=== PATIENT | male | born 1945 | race Caucasian/White ===

== ENCOUNTER 2020-06-06 07:51 | Outpatient (CLI) | payer MEDICARE, SELFPAY ==
--- NOTE | ~2020-06-06 | XR_ITS ---
EXAMINATION: XR hip RT 2V w AP pelvis EXAM DATE: 06/06/2020 08:18 INDICATION: No known recent injury provided at this time. Pain of the pelvis, right hip. TECHNIQUE: Right hip frontal, 'frog leg' projections for interpretation. Frontal projection pelvis. There is no prior study for comparison. FINDINGS: Smooth right hip femoral head contour, no radiographic evidence of avascular necrosis. The re is mild to moderate symmetric bilateral primary osteoarthritis. There are no acute pelvic or right hip fractures or dislocations identified. There is no subcutaneous gas. There is scattered arterio sclerotic disease. There are no radiopaque foreign bodies. IMPRESSION: Mild to moderate bilateral hip osteoarthritis. Reviewed, dictated and finalized at location G. FIC INVESTIGATOR
== END 2020-06-06 07:52 | disposition home or self-care (01) ==
PROVIDERS: PCP Family Medicine; Visit Provider Physician Assistant
DX: M16.0 Bilateral primary osteoarthritis of hip (principal)
CPT/HCPCS: 73502

== ENCOUNTER 2020-06-16 07:06 | Outpatient (CLI) | payer MEDICARE, SELFPAY ==
--- NOTE | ~2020-06-16 | CT_ITS ---
EXAMINATION: CT lung screening EXAM DATE: 06/16/2020 07:21 INDICATION: Z87.891 - Personal history of nicotine dependence. Cough. TECHNIQUE: Spiral low dose CT of the chest without contrast. Axial, coronal and sagittal images were reviewed. The dose-length product (DLP) for this examination was 161.21 mGy-cm. The exposure was t ailored according to patient size (auto mA exposure control), and iterative reconstruction (ASIR) was used as additional dose reduction technique. Comparison is made to prior examination from 06/06/2019 FINDINGS: Mild emphysema and hyperinflation. Linear left sided scarring. Punctate 3 mm right lower l obe nodule, interval decrease in size consistent with granuloma. Tracheobronchial tree is patent. T here is no mediastinal, hilar or axillary lymphadenopathy. There are no pleural or pericardial effu sions. There is no pneumothorax. Heart normal in size. There are dense coronary arteries, could be severe coronary arterial sclerosis and/or coronary artery stent(s), which are difficult to distin guish due to cardiac motion on this non-gated exam. Correlate with cardiac history and consider cardi ology consult if not recently evaluated. Upper abdomen is unremarkable. There is thoracic spondylos is without osteoblastic or osteolytic lesions identified. IMPRESSION: Lung-RADS category 2, benign appearance or behavior (<1% chance of malignancy); recommend continued LDCT screening in 1 year. Reviewed, dictated and finalized at location A. UNTANT CERTIFIED PUBLIC
== END 2020-06-16 07:07 | disposition home or self-care (01) ==
PROVIDERS: PCP Family Medicine; Visit Provider Family Medicine
DX: Z12.2 Encounter for screening for malignant neoplasm of respiratory organs (principal); Z87.891 Personal history of nicotine dependence
CPT/HCPCS: G0297

== ENCOUNTER 2020-11-10 11:14 | Emergency (ER) | payer MEDICARE, SELFPAY ==
[2020-11-10] VITALS (16 sets, daily range): BP systolic 127–179; BP diastolic 66–99; PULSE 63–86; RESP 12–20; TEMP 36.3; O2SAT 91–100
--- NOTE | ~2020-11-10 | US_ITS ---
EXAMINATION: US arterial duplex LE DATE: 11/10/2020 15:06 INDICATION: Peripheral arterial disease. Left lower limb pain. TECHNIQUE: Multiple grayscale and Doppler ultrasound images of the left lower limb were obtained. COMPARISON: Angiography 01/28/2010 FINDINGS: There is a left below-knee amputation. There is total occlusion of left common femoral esvin ry, superficial femoral artery, and profunda femoral artery. IMPRESSION: 1. Total occlusion of left common femoral artery, superficial femoral artery, and profunda femoral ar gino. Reviewed, dictated and finalized at location A. IMPRESSION: 1. Total occlusion of left common femoral artery, superficial femoral artery, a nd profunda femoral artery.
[2020-11-10 12:10] LABS: Basophils Percent Auto 0.2 % (0.2-1.2); Eosinophils Absolute Auto 0.3 K/mm3 (0-0.3); Eosinophils Percent Auto 3.5 % (0-4.4); Hematocrit 34.3 % (42.0-52.0); Hemoglobin 11.6 g/dL (14.0-18.0); Immature Granulocyte Absolute 0.04 K/mm3 (0.00-0.031); Immature Granulocyte Percent A 0.5 % (0-0.5); Lymphocytes Absolute Auto 0.65 K/mm3 (0.9-3.2); Lymphocytes Percent Auto 7.4 % (18.3-44.2); Mean Corpuscular HGB Conc 33.8 g/dl (32-36); Mean Corpuscular Volume 97.4 fl (80-100); Monocytes Absolute Auto 0.9 K/mm3 (0.1-0.6); Monocytes Percent Auto 10.6 % (2.6-8.5); Neutrophils Absolute Auto 6.9 K/mm3 (1.3-6.7); Neutrophils Percent Auto 77.8 % (45.5-73.1); Platelet Count Result 216 k/mm3 (150-375); Red Blood Count 3.52 M/mm3 (4.6-6.20); White Blood Count 8.8 K/mm3 (4.5-10.0)
[2020-11-10 12:21] LABS: Potassium 4.7 mmol/L (3.4-5.0)
[2020-11-10 12:22] LABS: Anion Gap 3 mmol/L (8-16); Blood Urea Nitrogen 15 mg/dL (9-20); Calcium 8.5 mg/dL (8.4-10.2); Carbon Dioxide 29 mmol/L (22-30); Chloride 98 mmol/L (98-107); Estimated CRCL calculation 58 ml/min; Estimated Glomerular Filt Rate > 60; Glucose 86 mg/dL (75-110); Sodium 130 mmol/L (137-145)
[2020-11-10] MEDS: MORPHINE SULFATE (*CRX) 4 MG/ML INJ IV PUSH (15:00)
[2020-11-10] MEDS: ONDANSETRON INJ 4 MG/2 ML VIAL IV PUSH (15:00)
--- NOTE | 2020-11-10 15:03 | ED.EXTPRO ---
HPI - Extremity Problem General Chief complaint: Back Pain/Injury <RADHA Adames Last Filed: 11/10/20 21:45> Stated complaint: Left Flank Pain <RADHA Adames Last Filed: 11/10/20 21:45> Time Seen by Provider: 11/10/20 14:04 <RADHA Adames Last Filed: 11/10/20 21:45> Source: patient <RADHA Adames Last Filed: 11/10/20 21:45> Mode of arrival: ambulatory <RADHA Adames Last Filed: 11/10/20 21:45> Limitations: no limitations <RADHA Adames Last Filed: 11/10/20 21:45> History of Present Illness HPI Narrative: This is a 75 year old male that presents to the ER for left leg pain since this morning. No known injury or trauma. Reports the pain is constant. It is difficult for him to find a comfortable position. He took Tylenol with little relief. He has extensive vascular history. His vascular surgeon is at [facility]. Denies decreased ROM or numbness. <RADHA Adames Last Filed: 11/10/20 21:45> Related Data Home medications: Home Medications Medication Instructions Recorded Confirmed aspirin 81 mg tablet,delayed 81 mg PO DAILY 09/28/19 10/24/20 release carvedilol 25 mg tablet 25 mg PO Q12H 09/28/19 10/24/20 isosorbide mononitrate 30 mg 30 mg PO DAILY 09/28/19 10/24/20 tablet,extended release 24 hr lisinopril 10 mg tablet 10 mg PO DAILY 09/28/19 10/24/20 clopidogrel 75 mg tablet 75 mg PO DAILY 10/08/19 10/24/20 <RADHA Adames Last Filed: 11/10/20 21:45> Allergies/Adverse reactions: Allergies Allergy/AdvReac Type Severity Reaction Status Date / Time No Known Allergies Allergy Verified 09/05/20 11:38 <RADHA Adames Last Filed: 11/10/20 21:45> Review of Systems Review of Systems: Narrative: CONSTITUTIONAL: Denies fever GASTROINTESTINAL: Denies abdominal pain, nausea, vomiting GENITOURINARY: Denies dysuria or hematuria. SKIN: Denies rash MUSCULOSKELETAL: Reports joint pain, and myalgia. NEUROLOGIC: Denies numbness <Marita Hampton PA-C - Last Filed: 11/10/20 21:45> All systems reviewed & are unremarkable except as noted in HPI and below <Marita Hampton PA-C - Last Filed: 11/10/20 21:45> PMFSH Past Medical History Medical History: Medical History Essential (primary) hypertension Hepatitis C antibody test negative 05-10-2017 History of colon polyps History of left below knee amputation (~04/01/10) Mixed hyperlipidemia Peripheral vascular disease, unspecified Smoking greater than 40 pack years <Marita Hampton PA-C - Last Filed: 11/10/20 21:45> Surgical History Surgical History: Surgical History Amputation of left lower extremity 04-01-10 H/O cardiac catheterization 01-05-11 H/O colonoscopy 04-10-2013 H/O colonoscopy with polypectomy 02-15-2012 H/O hernia repair 01-29-2007 <Marita Hampton PA-C - Last Filed: 11/10/20 21:45> Family History Family History: Family History Father Hypertension Family history of elevated blood lipids Family history of coronary artery disease Mother Cerebrovascular accident Family history of Alzheimer's disease Other No family history of cardiovascular disease <Marita Hampton PA-C - Last Filed: 11/10/20 21:45> Social History Social History: Social History (Updated 10/24/20 @ 10:46 by Olga Vela [facility]) Smoking packs per day: 1 Smoking cigarettes per day: 20.0 Tobacco type: cigarettes Alcohol intake: current <Marita Hampton PA-C - Last Filed: 11/10/20 21:45> Exam Narrative: Exam Narrative: GENERAL: Well-appearing, well-nourished, and in no acute distress. HEAD: Normocephalic, atraumatic. EYES: EOMI. CHEST: Clear to auscultation. No respiratory distress. No wheezes rales or rhonchi HEART: Regular rate and rhythm. No murmur heard. Normal millie
[2020-11-10 15:09] LABS: Add Urine Microscopic? YES; Appearance Urine Clear (Clear); Bilirubin Urine Negative (Negative); Blood Urine Negative (Negative); Color Urine Straw (Yellow); Glucose Urine UA 1+ mg/dL (Negative); Ketones Urine Negative (Negative); Leukocyte Esterase Ur Negative LEU/UL (Negative); Nitrate Urine Negative (Negative); Protein Urine Negative (Negative); Specific Grav Ur 1.009 (1.001-1.035); Urobilinogen Urine Negative mg/dL (<2.0)
[2020-11-10 15:27] LABS: RBC Urine 0-2 /hpf (0-2)
[2020-11-10 15:28] LABS: Squamous Epithelial Cell Urine Few /hpf (Few); WBC Urine 0-3 /hpf (0-3)
[2020-11-10] MEDS: diazePAM INJ (*CRX) 10 MG/2 ML SYRINGE 5 MG IV PUSH (17:37)
[2020-11-10 18:54] LABS: INR 0.9
[2020-11-10 18:55] LABS: Partial Thromboplastin Time 28.6 SECONDS (22.3-36.8)
--- NOTE | 2020-11-10 19:04 | PC.NURSE ---
contacted [facility] to transfer patient to [facility]. eta 2015
[2020-11-10] MEDS: HEPARIN SODIUM 5,000 UNITS/ML VIAL 6000 UNITS IV PUSH (19:13)
[2020-11-10] MEDS: HEPARIN SOD/D5W 100 UNITS/ML 25,000 UNITS/250 ML BAG 13 UNITS IV CONT (19:14)
--- NOTE | 2020-11-10 19:33 | PC.NURSE ---
Gave report to Madyson PATEL at [facility]
--- NOTE | 2020-11-10 21:45 | PC.NURSE ---
Shaneka arrived at 2140. Unit was a [employer] truck. When called in/scheduled was told NO EQUIPMENT . Patient has a Heparin drip that cannot be paused. Had to cancel and request an ALS truck. ETA approximately 2215.
== END 2020-11-10 23:02 | disposition short-term general hospital (02) ==
PROVIDERS: Emergency Medicine; Physician Assistant; Emergency Provider Emergency Medicine; PCP Family Medicine
DX: I70.222 Atherosclerosis of native arteries of extremities with rest pain, left leg (principal); E87.1 Hypo-osmolality and hyponatremia; I10 Essential (primary) hypertension; Z86.010 Personal history of colon polyps; Z89.512 Acquired absence of left leg below knee; E78.2 Mixed hyperlipidemia; F17.210 Nicotine dependence, cigarettes, uncomplicated; Z79.82 Long term (current) use of aspirin
CPT/HCPCS: 36415; 80048; 81001; 85025; 85610; 85730; 93926; 96365; 96366; 96375; 99285; J0131; J1644; J2270; J2405; J3360

== ENCOUNTER 2021-02-12 01:51 | Day surgery (SDC) | payer MEDICARE, SELFPAY ==
[2021-02-03 11:57] VITALS: BMI 23.1
--- NOTE | 2021-02-11 13:18 | WPDANESEPPF ---
Anes - Initial Pre Proc Eval Procedure: Operation Date: 02/12/21 08:00 Proposed Procedures p Screening Colonoscopy - Alvin Lucio MD Date/Time: 02/11/21 13:18 Surgeon: Alvin Lucio MD Pre Op Diagnosis: hx of colon polyps Patient Data Age: 76 Gender: M Height: 1.78 m Weight: 73 kg Allergies Allergy/AdvReac Type Severity Reaction Status Date / Time No Known Allergies Allergy Verified 02/12/21 06:44 Home Medications Medication Instructions Recorded Confirmed Type aspirin 81 mg tablet,delayed 81 mg PO DAILY 09/28/19 02/03/21 History release carvedilol 25 mg tablet 25 mg PO Q12H 09/28/19 02/03/21 History isosorbide mononitrate 30 mg 30 mg PO DAILY 09/28/19 02/03/21 History tablet,extended release 24 hr lisinopril 10 mg tablet 10 mg PO DAILY 09/28/19 02/03/21 History clopidogrel 75 mg tablet 75 mg PO DAILY 10/08/19 02/03/21 History simvastatin 10 mg tablet See Rx Instructions .ROUTE 08/28/20 02/03/21 Rx .COMPLEX #90 tablet fluticasone fur. 100 mcg-umeclid See Rx Instructions .ROUTE 09/11/20 02/03/21 Rx 62.5 mcg-vilant 25 mcg .COMPLEX #60 ea inhalat.powder albuterol sulfate 90 mcg/actuation See Rx Instructions .ROUTE 12/18/20 02/03/21 Rx breath activated powder inhaler .COMPLEX #2 ea Patient hx anesthesia problems: none Family hx anesthesia problems: none PMFSH Past Medical History Medical History CAD (coronary artery disease) Chronic obstructive pulmonary disease, unspecified Essential (primary) hypertension Hepatitis C antibody test negative 05-10-2017 History of colon polyps History of left below knee amputation (~04/01/10) Mixed hyperlipidemia Peripheral vascular disease, unspecified Smoking greater than 40 pack years Surgical History Surgical History Amputation of left lower extremity 04-01-10 H/O cardiac catheterization 01-05-11 H/O colonoscopy 04-10-2013 H/O colonoscopy with polypectomy 02-15-2012 H/O hernia repair 01-29-2007 Family History Family History Father Hypertension Family history of elevated blood lipids Family history of coronary artery disease Mother Cerebrovascular accident Family history of Alzheimer's disease Other No family history of cardiovascular disease Social History Social History (Updated 10/24/20 @ 10:46 by Olga Vela [facility]) Smoking packs per day: 1 Smoking cigarettes per day: 20.0 Years smoked: 55 Smoking pack-years: 55.00 Smoking status: Current some day smoker Tobacco type: cigarettes Alcohol intake: current Drinks per week: 20 Living arrangements: with family Spiritual care concerns: No Anes - Eval Final PreProcedure Day of Procedure 02/11/21 13:18 Patient weight: normal Heart: regular rate and rhythm Lungs: clear to auscultation and normal air movement Airway: Mallampati scale class II Neurological: alert and oriented Last oral intake: >/= 8 hours ASA classification: IV Emergent: no Anesthetic plan: proceed Anesthesia type and monitoring: general GIVS and standard monitoring Informed Consent: The patient's anesthetic plan and its attendant risks and benefits were discussed with the patient/family/POA. Questions were solicited and answers provided to the satisfaction of the patient/family/POA.
[2021-02-12 06:49] VITALS: BP 145/66; PULSE 70; RESP 18; TEMP 35.7; O2SAT 99; BMI 21.7
[2021-02-12] MEDS: LACTATED RINGERS 1,000 ML 150 ML IV CONT (07:01)
--- NOTE | 2021-02-12 08:03 | WPDGICN ---
Assessment and Plan Assessment and plan (1) History of colon polyps: Code(s): Z86.010 - Personal history of colonic polyps Status: Acute Assessment and Plan: Patient has a history of colon polyps. Plan is for surveillance colonoscopy now on at approximately 5 year intervals in the future. GI Consult Note Consult date/time: 02/12/21 08:03 HPI: Pablo Caputo is a 76 year old male Presents for screening colonoscopy. Patient has a prior history of colon polyps. He reports that his current weight appetite bowel movements are normal. He denies abdominal pain. He has had no bleeding. His last colonoscopy was in 2016. Review of Systems Review of Systems: All systems reviewed & are unremarkable except as noted in HPI and below PMFSH Past Medical History Medical History CAD (coronary artery disease) Chronic obstructive pulmonary disease, unspecified Essential (primary) hypertension Hepatitis C antibody test negative 05-10-2017 History of colon polyps History of left below knee amputation (~04/01/10) Mixed hyperlipidemia Peripheral vascular disease, unspecified Smoking greater than 40 pack years Surgical History Surgical History Amputation of left lower extremity 04-01-10 H/O cardiac catheterization 01-05-11 H/O colonoscopy 04-10-2013 H/O colonoscopy with polypectomy 02-15-2012 H/O hernia repair 01-29-2007 Family History Family History Father Hypertension Family history of elevated blood lipids Family history of coronary artery disease Mother Cerebrovascular accident Family history of Alzheimer's disease Other No family history of cardiovascular disease Social History Social History (Updated 10/24/20 @ 10:46 by Olga Vela CMA) Smoking packs per day: 1 Smoking cigarettes per day: 20.0 Years smoked: 55 Smoking pack-years: 55.00 Smoking status: Current some day smoker Tobacco type: cigarettes Alcohol intake: current Drinks per week: 20 Living arrangements: with family Spiritual care concerns: No Meds Home Medications and Allergies Home Medications Medication Instructions Recorded Confirmed Type aspirin 81 mg tablet,delayed 81 mg PO DAILY 09/28/19 02/03/21 History release carvedilol 25 mg tablet 25 mg PO Q12H 09/28/19 02/12/21 History isosorbide mononitrate 30 mg 30 mg PO DAILY 09/28/19 02/03/21 History tablet,extended release 24 hr lisinopril 10 mg tablet 10 mg PO DAILY 09/28/19 02/03/21 History clopidogrel 75 mg tablet 75 mg PO DAILY 10/08/19 02/12/21 History simvastatin 10 mg tablet See Rx Instructions .ROUTE 08/28/20 02/03/21 Rx .COMPLEX #90 tablet fluticasone fur. 100 mcg-umeclid See Rx Instructions .ROUTE 09/11/20 02/03/21 Rx 62.5 mcg-vilant 25 mcg .COMPLEX #60 ea inhalat.powder albuterol sulfate 90 mcg/actuation See Rx Instructions .ROUTE 12/18/20 02/03/21 Rx breath activated powder inhaler .COMPLEX #2 ea Allergies Allergy/AdvReac Type Severity Reaction Status Date / Time No Known Allergies Allergy Verified 02/12/21 06:44 Vital Signs Vital Signs - 24 hr 02/12/21 06:49 Temperature 96.3 F L Pulse Rate 70 Respiratory Rate 18 Blood Pressure 145/66 H Pulse Oximetry 99 Exam Narrative: Exam Narrative: Physical exam reveals patient be alert. Vital signs stable. HEENT exam unremarkable. Patient is anicteric. Lungs are clear to auscultation and percussion. Heart is without murmur or extra sounds. Abdominal exam bowel sounds are present soft nontender with no organomegaly. Extremities reveal a left BKA. Digital external rectal exam is normal.
[2021-02-12 08:30] VITALS: BP 92/50; PULSE 61; RESP 16; O2SAT 99
[2021-02-12 08:40] VITALS: BP 111/59; PULSE 71; RESP 19; O2SAT 95
[2021-02-12 08:50] VITALS: BP 126/65; PULSE 61; RESP 23; O2SAT 100
== END 2021-02-12 09:06 | disposition home or self-care (01) ==
PROVIDERS: PCP Family Medicine; Visit Provider Internal Medicine Gastroenterology
PROC: 0DJD8ZZ Inspection of Lower Intestinal Tract, Via Natural or Artificial Opening Endoscopic (ICD-10-PCS; CPT 45378; principal; 2021-02-12 08:00)
DX: Z12.11 Encounter for screening for malignant neoplasm of colon (principal); K63.5 Polyp of colon; I25.10 Atherosclerotic heart disease of native coronary artery without angina pectoris; I73.9 Peripheral vascular disease, unspecified; J44.9 Chronic obstructive pulmonary disease, unspecified; E78.2 Mixed hyperlipidemia; F17.210 Nicotine dependence, cigarettes, uncomplicated; Z89.512 Acquired absence of left leg below knee
CPT/HCPCS: 45385; 88305; J2704; J7120

== ENCOUNTER 2021-12-09 07:59 | Outpatient (CLI) | payer MEDICARE, SELFPAY ==
--- NOTE | ~2021-12-09 | CT_ITS ---
EXAMINATION: CT lung screening DATE: 12/09/2021 08:15 INDICATION: Personal history of nicotine dependence, current smoker with 55 pack year history TECHNIQUE: Computed tomography (CT) of the chest was performed without intravenous contrast. The dose -length product (DLP) was 75.64 mGy-cm. Automated exposure control and iterative reconstruction techn ique were employed. COMPARISON: 06/16/2020 FINDINGS: There is mild emphysema. There is a new 6 mm nodule of right upper lobe on image 57. A 4 mm nodule in the right lower lobe on image 83 demonstrates slight increase in size. There is a stable 4 mm right upper lobe nodule. The lungs are free of focal airspace opacities. There is no pleural effu dave or pneumothorax. Bilateral gynecomastia is noted. No pathologically enlarged thoracic lymph node s are identified. The heart size is normal. There is calcified coronary artery atherosclerosis. 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 IMPRESSION: 1. Lung-RADS category 4A: Suspicious. Findings for which additional diagnostic testing is recommended . Follow-up low-dose CT in three months is recommended. Reviewed, dictated and finalized at location A. IMPRESSION: 1. Lung-RADS category 4A: Suspicious. Findings for which additional diagnostic testing is recommended. Follow-up low-dose CT in three months is recommended.
== END 2021-12-09 08:00 | disposition home or self-care (01) ==
PROVIDERS: PCP Family Medicine; Visit Provider Physician Assistant
DX: F17.210 Nicotine dependence, cigarettes, uncomplicated (principal); R91.8 Other nonspecific abnormal finding of lung field
CPT/HCPCS: 71271

== ENCOUNTER 2022-02-04 07:43 | Outpatient (CLI) | payer MEDICARE, SELFPAY | END 2022-02-04 07:44 | disposition home or self-care (01) | LOC: ANHAUDASC 07:44 | PROVIDERS: PCP Family Medicine; Visit Provider Otolaryngology | DX: H90.41 Sensorineural hearing loss, unilateral, right ear, with unrestricted hearing on the contralateral side (principal); H90.72 Mixed conductive and sensorineural hearing loss, unilateral, left ear, with unrestricted hearing on the contralateral side | CPT/HCPCS: 92557; 92567 ==

== ENCOUNTER 2022-04-01 07:48 | Outpatient (CLI) | payer MEDICARE, SELFPAY ==
--- NOTE | ~2022-04-01 | CT_ITS ---
EXAMINATION:CT lung screening DATE: 04/01/2022 08:02 INDICATION: New pulmonary nodule. Personal history of nicotine dependence. TECHNIQUE: Computed tomography (CT) of the chest was performed without intravenous contrast. Automate d exposure control and iterative reconstruction technique were employed. The dose-length product (DLP ) was 81.78 mGy-cm. COMPARISON: Chest CT 12/09/2021, 06/16/2020 FINDINGS: There is mild emphysema. There is mild atelectasis bilaterally. There is a 3 mm nodule in r ight upper lobe. There is a 6 mm nodule in right upper lobe, stable from 12/09/21. No pleural effusion . The heart size is normal. There are coronary artery calcifications. No pericardial effusion. There is bilateral gynecomastia. There is severe cervical spondylosis and moderate thoracic spondylosis. IMPRESSION: 1. Lung-RADS category 2: Benign appearance or behavior. Continue annual screening with noncontrast lo w-dose chest CT in 12 months. Reviewed, dictated and finalized at location A. IMPRESSION: 1. Lung-RADS category 2: Benign appearance or behavior. Continue annual screeni ng with noncontrast low-dose chest CT in 12 months.
== END 2022-04-01 07:49 | disposition home or self-care (01) ==
LOC: ANHIMG 07:49
PROVIDERS: PCP Family Medicine; Visit Provider Nurse Practitioner
DX: Z12.2 Encounter for screening for malignant neoplasm of respiratory organs (principal); Z87.891 Personal history of nicotine dependence
CPT/HCPCS: 71271

== ENCOUNTER 2022-11-30 13:22 | Outpatient (CLI) | payer MEDICARE, SELFPAY ==
--- NOTE | ~2022-11-30 | XR_ITS ---
EXAMINATION: XR hand LT min 3V DATE: 11/30/2022 13:40 INDICATION: Left hand injury with swelling and bruising TECHNIQUE: Posteroanterior, oblique and lateral views of the left hand were obtained. COMPARISON: None. FINDINGS: Diffuse osteopenia. Extra-articular spiral fracture of the proximal to mid diaphysis of the left fift h metacarpal. There is one cortical width radial/palmar displacement and approximately 3-4 mm proxima l migration with overriding. No other fractures identified. Polyarticular osteoarthritis, moderate se verity with mild palmar subluxation at the third metacarpophalangeal joint and mild at the distal rad ioulnar, triscaphe, first carpometacarpal, first and second metacarpophalangeal and multiple interpha langeal joints. IMPRESSION: 1. Mild displacement of a right fifth metacarpal diaphyseal fracture. Reviewed, dictated and finalized at location L.
== END 2022-11-30 13:23 | disposition home or self-care (01) ==
PROVIDERS: PCP Family Medicine; Visit Provider Family Medicine
DX: S62.307A Unspecified fracture of fifth metacarpal bone, left hand, initial encounter for closed fracture (principal); X58.XXXA Exposure to other specified factors, initial encounter
CPT/HCPCS: 73130

== ENCOUNTER 2023-02-26 19:50 | Emergency (ER) | payer MEDICARE, SELFPAY ==
--- NOTE | ~2023-02-26 | CT_ITS ---
EXAMINATION: CT cervical spine wo con DATE: 02/26/2023 21:26 INDICATION: head injury, takes blood thinners TECHNIQUE: Computed tomography (CT) of the cervical spine was performed without intravenous contrast. Automated exposure control and iterative reconstruction technique were employed. The dose-length pro duct was 212.42 mGy-cm. COMPARISON: CT lung screening 04/01/2022. FINDINGS: Vertebral Body Alignment: Intact. Focal reversal of the normal cervical lordosis, centered at C6-7. M inor, grade 1 anterolistheses at C4-5 and C5-6, presumably on a degenerative basis. Stable, minor gra de 1 anterolisthesis at C7-T1 Craniocervical and atlantoaxial alignment: Moderate degenerative change. Alignment intact. Osseous structures/fracture: No evidence of a lytic or blastic process in the visualized spine. No e vidence of acute fracture. Cervical soft tissues: The paraspinal soft tissues planes are maintained. Biapical pleural scarring. Degenerative changes: Multilevel degenerative disc disease. Multilevel severe facet arthropathy inclu ding facet fusion at C3-4 on the right. Multilevel severe neural foraminal narrowing. No severe centr al canal narrowing. IMPRESSION: No acute fracture or traumatic malalignment in the cervical spine. Reviewed, dictated and finalized at location K.
--- NOTE | ~2023-02-26 | CT_ITS ---
EXAMINATION: CT brain wo con DATE: 02/26/2023 21:26 INDICATION: head injury, takes blood thinners . TECHNIQUE: Computed tomography (CT) of the head was performed without intravenous contrast. The mA wa s adjusted according to patient size. Iterative reconstruction technique was employed. The dose-lengt h product was 605.33 mGy-cm. COMPARISON: None. FINDINGS: No acute intracranial hemorrhage or extra-axial fluid collection. No hydrocephalus, mass, or herniation. No acute ischemic infarct. Unremarkable dural venous sinus attenuation. No acute osseous abnormality. Left frontal scalp laceration/hematoma. Mucosal thickening in the bilateral maxillary sinuses, the remaining aerated spaces are clear. Moderate atrophy and chronic white matter change. Atherosclerotic intracranial calcification. Bilater al lens replacements. IMPRESSION: No acute intracranial process. Reviewed, dictated and finalized at location K.
[2023-02-26 20:07] VITALS: BP 110/94; PULSE 77; RESP 18; TEMP 36.5; O2SAT 97
[2023-02-26 21:43] VITALS: BP 157/85; PULSE 78; RESP 15; O2SAT 100
--- NOTE | 2023-02-26 23:02 | ED.FALL ---
HPI - Fall General Chief Complaint: Fall Stated Complaint: fall and hit head Time Seen by Provider: 02/26/23 21:30 Source: patient and family Mode of arrival: ambulatory Limitations: no limitations History of Present Illness HPI Narrative: Patient is a 78-year-old male who presents to the ED with report of head injury, laceration to left side of forehead. Patient has a history of left below the knee amputation with prosthesis. Daughter at bedside reports his prosthesis got caught on a table cloth tonight which caused patient to fall. The fall was witnessed. Patient believes his eyeglasses cut his forehead. He denied LOC. Denies any prodromal symptoms prior to the fall. He denies any other areas of pain. Denies dizziness, lightheadedness, vision changes, nausea, vomiting, neck or back pain. Tetanus up-to-date. Related Data Home Medications Medication Instructions Recorded Confirmed aspirin 81 mg tablet,delayed 81 mg PO DAILY 09/28/19 11/24/22 release carvedilol 25 mg tablet 25 mg PO Q12H 09/28/19 11/24/22 isosorbide mononitrate 30 mg 30 mg PO DAILY 09/28/19 11/24/22 tablet,extended release 24 hr clopidogrel 75 mg tablet (Plavix) 75 mg PO DAILY 10/08/19 11/24/22 Allergies Allergy/AdvReac Type Severity Reaction Status Date / Time No Known Allergies Allergy Verified 11/24/22 08:26 Review of Systems Review of Systems: CONSTITUTIONAL: Denies fever, chills, or sweats. EYES: Denies visual changes. CARDIOVASCULAR: Denies chest pain. RESPIRATORY: Denies dyspnea. GASTROINTESTINAL: Denies abdominal pain, nausea, vomiting. SKIN: See HPI. MUSCULOSKELETAL: See HPI. NEUROLOGIC: See HPI. All systems reviewed & are unremarkable except as noted in HPI and below PMFSH Past Medical History Medical History Blood clots in biliary tract following procedure CAD (coronary artery disease) Chronic obstructive pulmonary disease, unspecified Essential (primary) hypertension Hepatitis C antibody test negative 05-10-2017 History of colon polyps History of left below knee amputation (~04/01/10) Mixed hyperlipidemia Peripheral vascular disease, unspecified Smoking greater than 40 pack years Surgical History Surgical History Amputation of left lower extremity 91 H/O cardiac catheterization 01-05-11 H/O colonoscopy 04-10-2013 H/O colonoscopy with polypectomy 02-15-2012 H/O hernia repair 01-29-2007 Family History Family History Father Hypertension Family history of elevated blood lipids Family history of coronary artery disease Mother Cerebrovascular accident Family history of Alzheimer's disease Other No family history of cardiovascular disease Social History Social History Smoking packs per day: 1 Smoking cigarettes per day: 20.0 Years smoked: 55 Smoking pack-years: 55.00 Smoking status: Current every day smoker Tobacco type: cigarettes Alcohol intake: current Drinks per week: 28 Alcohol use details: States he plays game nightly with his for about four hours and has a beer about every hour Substance use type: does not use Lack of Transportation: No Lack of Food: Never True Current Housing: I Have Housing Concerned About Future Housing: No Difficulty Paying Gas/Electric Bills: No Difficulty Paying for Meds: No Currently Unemployed: No Education: Bachelor's Degree Difficulty w/ Childcare or Family Care: Decline to Answer Living arrangements: with family Occupation/Education: retired Spiritual care concerns: No Exam Narrative: GENERAL: Elderly, well-nourished, non-toxic, in no acute distress. HEAD: Normocephalic. Approx 4 cm laceration, linear, to forehead, just left of midline, extending towards medial eyebrow. Mild contusion underlying. EYES: PERRLA/EOMI, conjunc
[2023-02-26 23:20] VITALS: BP 162/97; PULSE 73; RESP 16; TEMP 36.6; O2SAT 97
== END 2023-02-26 23:21 | disposition home or self-care (01) ==
PROVIDERS: Emergency Provider Physician Assistant; PCP Family Medicine
DX: S01.81XA Laceration without foreign body of other part of head, initial encounter (principal); I25.10 Atherosclerotic heart disease of native coronary artery without angina pectoris; I10 Essential (primary) hypertension; I73.9 Peripheral vascular disease, unspecified; J44.9 Chronic obstructive pulmonary disease, unspecified; E78.2 Mixed hyperlipidemia; F17.210 Nicotine dependence, cigarettes, uncomplicated; Z86.010 Personal history of colon polyps; Z79.82 Long term (current) use of aspirin; Z89.512 Acquired absence of left leg below knee; W18.09XA Striking against other object with subsequent fall, initial encounter
CPT/HCPCS: 12013; 70450; 72125; 99284

== ENCOUNTER 2023-04-19 08:20 | Outpatient (CLI) | payer MEDICARE, SELFPAY ==
--- NOTE | ~2023-04-19 | CT_ITS ---
EXAMINATION: CT lung screening DATE: 04/19/2023 08:42 INDICATION: Personal history nicotine dependence, current smoker with 56 pack year history TECHNIQUE: Computed tomography (CT) of the chest was performed without intravenous contrast. The dose -length product (DLP) was 80.38 mGy-cm. Automated exposure control and iterative reconstruction techn [employer] were employed. COMPARISON: 04/01/2022 FINDINGS: There is mild emphysema. The previously described 6 mm nodule of the right upper lobe is no longer evident. There is stable 4 mm nodule of the right lower lobe. No pleural effusion or pneumoth orax. The lungs are free of acute opacities. No pathologically enlarged thoracic lymph nodes are iden tified. The heart size is normal. There is calcified coronary artery atherosclerosis. Bilateral gynec omastia is noted. 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 IMPRESSION: 1. Lung-RADS category 2: Benign appearance or behavior. Continue annual screening with noncontrast lo w-dose chest CT in 12 months. Reviewed, dictated and finalized at location [facility]. IMPRESSION: 1. Lung-RADS category 2: Benign appearance or behavior. Continue annual screeni ng with noncontrast low-dose chest CT in 12 months.
== END 2023-04-19 08:21 | disposition home or self-care (01) ==
PROVIDERS: PCP Family Medicine; Visit Provider Nurse Practitioner
DX: Z12.2 Encounter for screening for malignant neoplasm of respiratory organs (principal); Z87.891 Personal history of nicotine dependence
CPT/HCPCS: 71271